=== PATIENT | female | born 1950 | race Caucasian/White ===

== ENCOUNTER → 2018-08-12 | Emergency (ER) | payer OTHER ==
[~2018-08-12] MED LIST: ACETAMINOPHEN 325 MG TABLET (FP) ONE; ACETAMINOPHEN 650 MG/20.3 ML ORAL SOLUTION (CUPS) ONE; ACETAMINOPHEN 650 MG/20.3 ML ORAL SOLUTION (CUPS) PO ONE
[2018-08-12 22:32] VITALS: BP 156/62; PULSE 82; TEMP 102; BMI 28.9
== END | disposition left against medical advice (07) ==
LOC: JER 22:27
DX: Z53.21 Procedure and treatment not carried out due to patient leaving prior to being seen by health care provider (principal)
CPT/HCPCS: 99281-25

== ENCOUNTER 2018-10-01 05:53 | Emergency (ER) | payer OTHER ==
--- NOTE | 2018-10-01 05:57 | PDOC ---
ED Treatment Course - LABORATORY CBC & Chemistry Diagram: 10/01/18 07:30 10/01/18 07:30 Medical Decision Making - Medical Decision Making 10/01/18 05:56 Patient seen by the advanced practice provider under my direct supervision. Ancillary testing reviewed as necessary. I agree with plan as outlined by the advanced practice provider. *DC/Admit/Observation/Transfer Diagnosis at time of Disposition: Uncontrolled hypertension - Discharge Dispostion Disposition: HOME - Prescriptions Prescriptions: Alprazolam [Xanax] 0.25 mg PO DAILY PRN #7 tablet MDD 1 tab PRN Reason: Anxiety Lisinopril [Prinivil] 20 mg PO DAILY #7 tablet - Referrals Referrals: Van Henson MD [Staff Physician] - - Patient Instructions Printed Discharge Instructions: DI for High Blood Pressure Additional Instructions: You presented to the ER with uncontrolled Hypertension. Your blood pressure improved with Xanax. Please follow up with your PCP as you will likely need further BP monitoring and control--Please call and make an appointment, Your work up is not complete until you do so. Continue all your other medications as prescribed. You are being discharged on Lisinopril 20mg Daily and Xanax 0.25mg to be taken as needed. Please return to the ER if you have any signs or symptoms of chest pain, shortness of breath, fever, uncontrollable pain, chills, nausea, vomiting, numbness, tingling, or weakness in any part of your body, changes in vision or slurred speech. Please return to the ER if symptoms persist, worsen, or new symptoms arise. - Post Discharge Activity
[2018-10-01 06:18] VITALS: BMI 28.8
[2018-10-01] MEDS ORDERED: METOPROLOL TARTRATE 50 MG TABLET (FP) PO ONE (07:35)
[2018-10-01] MEDS ORDERED: METOPROLOL TARTRATE 50 MG TABLET (FP) ONE (07:39)
--- NOTE | 2018-10-01 07:50 | PDOC ---
History of Present Illness - General Chief Complaint: Blood Pressure Problem Stated Complaint: HIGH BLOOD PRESSURE Time Seen by Provider: 10/01/18 05:56 History Source: Patient Exam Limitations: No Limitations - History of Present Illness Initial Comments: 10/01/18 07:40 67 y/o F with PMHx of HTN, Hypothyroidism, GERD, Anxiety, Breast Ca s/p Right mastectomy presents with Hypertensive urgency. Patient says about 4-5 days ago, she began to experience a headache described as 1/10, Dull and diffuse. She was concerned at this time bc she mentions she very rarely has headaches, and was prompted to measure her BP which was 211/107. A few hours following this, her BP returned to her baseline of 130s/80s however her headache as persisted. Today at 3:30am, she woke from sleep very anxious and measured her BP to be 224/ 101. She called her PCP at this time and was advised to visit the ED. Patient has had similar episodes in the past that were related to anxiety. She mentions previous discussions with her PCP regarding her anxiety however has declined medical tx (Zoloft) due to side effect profiles. Lastly, she mentions a recent increase in stress and anxiety due to her husbands current admission to [facility]. Denies any recent trauma, travel, sick contacts or recent medication changes. Denies any Fevers, chills, weakness, chest pain, SOB, nausea, vomiting, diarrhea , constipation, dysuria, visual changes, photophobia. PCP: Dr. Henson Cardio: Dr. Arguelles PMHx: As above PSHx: Cardiac Stent x1, Right mastectomy Allergies: Meperidine, PCN Social: 1ppd smoker since age 16, Denies EtOH or Drug use FHx: Mother and father with alcoholism, Father additionally had UT 10/01/18 07:50 Past History - Past Medical History Allergies/Adverse Reactions: Allergies Allergy/AdvReac Type Severity Reaction Status Date / Time meperidine HCl [From Demerol] Allergy Verified 10/01/18 06:18 Home Medications: Ambulatory Orders Aspirin [Hardeep Chewable Aspirin] 81 mg PO DAILY 06/13/15 Lansoprazole [Prevacid] 30 mg PO DAILY 06/13/15 Levothyroxine [Synthroid -] 75 mcg PO DAILY 06/13/15 Metoprolol Tartrate [Lopressor -] 50 mg PO BID 06/13/15 Cefuroxime Axetil [Ceftin] 500 mg PO BID #10 tablet 01/11/16 Sulfamethoxazole/Trimethoprim [Bactrim Oral Suspension -] 10 ml PO BID #140 ml 01/12/16 Cancer: Yes (right breast 10 years) Cardiac Disorders: Yes COPD: No GI Disorders: Yes (gerd) HTN: Yes Hypercholesterolemia: Yes Kidney Stones: Yes Thyroid Disease: Yes (hypothyroid) - Surgical History Cardiac Surgery: Yes (stent placed 2011) - Immunization History Immunization Up to Date: Yes - Suicide/Smoking/Psychosocial Hx Smoking History: Current every day smoker Have you smoked in the past 12 months: No Number of Cigarettes Smoked Daily: 6 If you are a former smoker, when did you quit?: doesnt want boooklet Information on smoking cessation initiated: No 'Breaking Loose' booklet given: 12/31/14 Hx Alcohol Use: No Drug/Substance Use Hx: No Substance Use Type: None Review of Systems - Review of Systems Constitutional: No: Chills, Fever, Weakness HEENTM: No: Blurred Vision, Recent change in vision Respiratory: No: Shortness of Breath, Wheezing Cardiac (ROS): No: Chest Pain, Lightheadedness, Palpitations ABD/GI: No: Constipated, Diarrhea, Nausea, Vomiting : No: Dysuria, Hematuria Neurological: Yes: Headache. No: Numbness, Tingling, Weakness Psychiatric: Yes: Anxiety (Mild) Endocrine: No: Excessive Sweating, Unexplained Weight Loss *Physical Exam - Vital Signs Last Vital Signs Temp Pulse Resp BP Pulse Ox 98.3 F 77 18 223/94 H 98 10/01/18 06:16 10/01/18 07:05 10/01/18 07:05 10/01/18 07:05 10/01/18 07:05 - Physical Exam General Appearance: Yes: Nourished, Appropriately Dressed HEENT: positive: EOMI, LIZ. negative: Pharyngeal Erythema, Tonsillar Exudate Neck: positive: Supple Respiratory/Chest: positive: Lungs Clear, Normal Breath Sounds. negative: Crackles, Rales, Wheezing Cardiovascular: positive: Regular Rhythm, Regular Rate, S1, S2. negative: Edema , JVD, Murmur Gastrointestinal/Abdominal: positive: Normal Bowel Sounds, Soft. 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 negative: Facial Droop, Numbness, Sensory Deficit, Confused ED Treatment Course - LABORATORY CBC & Chemistry Diagram: 10/01/18 07:30 10/01/18 07:30 - RADIOLOGY Radiology Studies Ordered: Category Date Time Status HEAD CT WITHOUT CONTRAST [CT] Stat CT Scan 10/01/18 07:35 Ordered Medical Decision Making - Medical Decision Making 10/01/18 07:50 67 y/o F with PMHx of HTN, Hypothyroidism, GERD, Anxiety, Breast Ca s/p Right mastectomy presents with uncontrolled HTN. Concern for Hypertensive urgency/emergency. Likely anxiety related. Without Tachycardia, No FND, No thunderclap. Will Check EKG, CBC, CMP, Mag, Phos, Cardiac profile. Head CT without contrast given Headache. Give Home dose metoprolol tartrate 100mg Now Ongoing assessment. 10/01/18 08:[address]: No evidence of a focal intracranial lesion or hemorrhage seen. Correlate clinically to determine further evaluation and follow-up EKG: NSR, LAD, No ST Segment elevation or depression, New TWI in V1, VR 60, QTc 438 BP measured 238/40 HR 64 Will give Nifedipine 30mg PO now Ongoing assessment. 10/01/18 08:52 Patient is unable to swallow pills--Will Try Lisinopril 20mg Now Trial Alprazolam 0.25mg 10/01/18 09:15 Laboratory Last Values WBC 8.5 K/mm3 (4.0-10.0) 10/01/18 07:30 RBC 4.87 M/mm3 (3.60-5.2) 10/01/18 07:30 Hgb 14.5 GM/dL (10.7-15.3) 10/01/18 07:30 Hct 43.3 % (32.4-45.2) D 10/01/18 07:30 MCV 88.9 fl (80-96) 10/01/18 07:30 MCH 29.8 pg (25.7-33.7) 10/01/18 07:30 MCHC 33.5 g/dl (32.0-36.0) 10/01/18 07:30 RDW 14.6 % (11.6-15.6) 10/01/18 07:30 Plt Count 283 K/MM3 (134-434) D 10/01/18 07:30 MPV 8.3 fl (7.5-11.1) 10/01/18 07:30 Absolute Neuts (auto) 5.3 K/mm3 (1.5-8.0) 10/01/18 07:30 Neutrophils % 62.2 % (42.8-82.8) 10/01/18 07:30 Lymphocytes % 25.0 % (8-40) 10/01/18 07:30 Monocytes % 7.9 % (3.8-10.2) 10/01/18 07:30 Eosinophils % 3.6 % (0-4.5) D 10/01/18 07:30 Basophils % 1.3 % (0-2.0) 10/01/18 07:30 Nucleated RBC % 0 % (0-0) 10/01/18 07:30 Sodium 142 mmol/L (136-145) 10/01/18 07:30 Potassium 4.0 mmol/L (3.5-5.1) 10/01/18 07:30 Chloride 111 mmol/L (98-107) H 10/01/18 07:30 Carbon Dioxide 25 mmol/L (21-32) 10/01/18 07:30 Anion Gap 5 MMOL/L (8-16) L 10/01/18 07:30 BUN 11.6 mg/dL (7-18) 10/01/18 07:30 Creatinine 0.9 mg/dL (0.55-1.3) 10/01/18 07:30 Est GFR (CKD-EPI)AfAm 77.77 10/01/18 07:30 Est GFR (CKD-EPI)NonAf 67.10 10/01/18 07:30 Random Glucose 95 mg/dL (74-106) 10/01/18 07:30 Calcium 9.0 mg/dL (8.5-10.1) 10/01/18 07:30 Phosphorus 2.4 mg/dL (2.5-4.9) L 10/01/18 07:30 Magnesium 1.9 mg/dL (1.8-2.4) 10/01/18 07:30 Total Bilirubin 0.7 mg/dL (0.2-1) 10/01/18 07:30 AST 21 U/L (15-37) 10/01/18 07:30 ALT 28 U/L (13-61) 10/01/18 07:30 Alkaline Phosphatase 90 U/L (45-117) 10/01/18 07:30 Creatine Kinase 68 U/L (26-192) 10/01/18 07:30 Troponin I < 0.02 ng/ml (0.00-0.05) 10/01/18 07:30 Total Protein 8.3 g/dl (6.4-8.2) H 10/01/18 07:30 Albumin 3.8 g/dl (3.4-5.0) 10/01/18 07:30 10/01/18 09:44 BP now 191/72. Anxiety improved. Patient remains asymptomatic during her stay. Given Head CT Negative and Labwork unremarkable, Will dc home to follow up with PCP. Patient instructed to follow up with Dr. Henson within 48 hours. Rx sent for Lisinopril, Alprazolam. Patient agreeable with plan. Strict return precautions given. *DC/Admit/Observation/Transfer Diagnosis at time of Disposition: Uncontrolled hypertension - Discharge Dispostion Disposition: HOME Decision to Admit order: No - Referrals Referrals: Van Henson MD [Staff Physician] - - Patient Instructions Printed Discharge Instructions: DI for High Blood Pressure Additional Instructions: You presented to the ER with uncontrolled Hypertension. Your blood pressure improved with Xanax. Please follow up with your PCP as you will likely need further BP monitoring and control--Please call and make an appointment, Your work up is not complete until you do so. Continue all your other medications as prescribed. You are being discharged on Lisinopril 20mg Daily and Xanax 0.25mg to be taken as needed. Please return to the ER if you have any signs or symptoms of chest pain, shortness of breath, fever, uncontrollable pain, chills, nausea, vomiting, numbness, tingling, or weakness in any part of your body, changes in vision or slurred speech. Please return to the ER if symptoms persist, worsen, or new symptoms arise. - Post Discharge Activity
[2018-10-01 08:07] LABS: BASO % 1.3 % (0-2.0); EOS % 3.6 % (0-4.5); HEMATOCRIT 43.3 % (32.4-45.2); HEMOGLOBIN 14.5 GM/dL (10.7-15.3); MCH 29.8 pg (25.7-33.7); MCHC 33.5 g/dl (32.0-36.0); MEAN CELL VOLUME 88.9 fl (80-96); MEAN PLT VOLUME 8.3 fl (7.5-11.1); MONO % 7.9 % (3.8-10.2); NEUT % 62.2 % (42.8-82.8); PLATELET COUNT 283 K/MM3 (134-434); RBC 4.87 M/mm3 (3.60-5.2); RDW 14.6 % (11.6-15.6); WHITE BLOOD COUNT 8.5 K/mm3 (4.0-10.0)
--- NOTE | 2018-10-01 08:10 | PDOC ---
Documentation entered by Yanna Norman SCRIBE, acting as scribe for Ishmael Sun MD. Ishmael Sun MD: This documentation has been prepared by the carmenibe, Yanna Norman SCRIBE, under my direction and personally reviewed by me in its entirety. I confirm that the documentation accurately reflects all work, treatment, procedures, and medical decision making performed by me. Attending Attestation - Resident Resident Name: JonnieKristin - ED Attending Attestation I have performed the following: I have examined & evaluated the patient, The case was reviewed & discussed with the resident, I agree w/resident's findings & plan, Exceptions are as noted - HPI HPI: 10/01/18 08:01 67 F with h/o HTN, GERD, hypothyroid presents to ED with elevated BP and headache. Pt states that she first noticed her BP was elevated 4 days ago. States that it was around 200 systolic. She endorses mild headache that started around the same time. Denies thunderclap. Denies fevers/chills. Denies neck stiffness. No N/V. Pt states that she takes metoprolol 100mg BID, which she has been compliant with, though she has not taken it today. She attributes her elevated BP to stress and anxiety. Denies CP/SOB. Denies leg swelling. Pt states her normal BP is usually around 140/80. Pt called her PMD Dr. Henson this morning when her BP peaked at 220 systolic, and she was instructed to come to ED. - Physicial Exam PE: 10/01/18 08:06 GENERAL: Awake, alert, and fully oriented, in no acute distress. HEAD: No signs of trauma EYES: PERRLA, EOMI, sclera anicteric, conjunctiva clear ENT: Auricles normal inspection, hearing grossly normal, nares patent, oropharynx clear without exudates. Moist mucosa NECK: Nontender, no stepoffs, Normal ROM, supple, no lymphadenopathy, JVD, or masses LUNGS: Breath sounds equal, clear to auscultation bilaterally. No wheezes, and no crackles HEART: Regular rate and rhythm, normal S1 and S2, no murmurs, rubs or gallops ABDOMEN: Soft, nontender, normoactive bowel sounds. No guarding, no rebound. No masses EXTREMITIES: Normal range of motion, no edema. No clubbing or cyanosis. No cords, erythema, or tenderness NEUROLOGICAL: Cranial nerves II through XII intact. 5/5 strength and sensation in all extremities, Normal speech, normal gait, normal cerebellar function SKIN: Warm, Dry, normal turgor, no rashes or lesions noted. - Medical Decision Making 10/01/18 08:06 67 F with uncontrolled BP. Has not taken her home dose of metoprolol today. Pt also with mild headache but no neuro deficits, low suspicion for ICH. - Labs, trop - CT head - Home dose metoprolol 100mg 10/01/18 10:01 Pt given lisinopril 20mg Also given xanax 0.25 mg as pt reporting significant stress and anxiety. BP now 190/70. Labs wnl CT unremarkable Pt is well appearing, with normal vitals. Clinically stable for DC at this time. I discussed the physical exam findings, ancillary test results and final diagnoses with the patient. I answered all of the patient's questions. The patient was satisfied with the care received and felt comfortable with the discharge plan and treatment plan. The patient agrees to follow up with the primary care physician within 24-72 hours.
[2018-10-01 08:21] LABS: ALBUMIN 3.8 g/dl (3.4-5.0); BILIRUBIN,TOTAL 0.7 mg/dL (0.2-1); BLOOD UREA NITROGEN 11.6 mg/dL (7-18); CREATININE 0.9 mg/dL (0.55-1.3); MAGNESIUM 1.9 mg/dL (1.8-2.4); PHOSPHOROUS 2.4 mg/dL (2.5-4.9); TOT PROT 8.3 g/dl (6.4-8.2)
[2018-10-01] MEDS ORDERED: NIFEdipine 10 MG CAPSULE (FP) PO ONE (08:34)
[2018-10-01] MEDS ORDERED: NIFEdipine E.R. 30 MG TABLET (FP) ONE (08:53)
[2018-10-01] MEDS: NIFEdipine E.R. 30 MG TABLET (FP) PO ONE ×2 (08:54→09:03)
[2018-10-01] MEDS ORDERED: LISINOPRIL 20 MG TABLET (FP) PO ONE (09:02)
[2018-10-01] MEDS ORDERED: LISINOPRIL 20 MG TABLET (FP) ONE (09:04)
[2018-10-01] MEDS ORDERED: ALPRAZolam 0.25 MG TABLET PO ONE ×2 (09:04→09:28)
[2018-10-01] MEDS ORDERED: ALPRAZolam 0.25 MG TABLET ONE (09:06)
[2018-10-01 10:04] VITALS: BP 191/72; PULSE 78; TEMP 98.1
--- NOTE | 2018-10-01 11:16 | EKG ---
Test Reason : Blood Pressure : / mmHG Vent. Rate : 060 BPM Atrial Rate : 060 BPM P-R Int : 192 ms QRS Dur : 078 ms QT Int : 438 ms P-R-T Axes : 043 -43 092 degrees QTc Int : 438 ms NORMAL SINUS RHYTHM LEFT AXIS DEVIATION SEPTAL INFARCT (CITED ON OR BEFORE 01-OCT-2018) ABNORMAL ECG WHEN COMPARED WITH ECG OF 13-JUN-2015 19:31, QUESTIONABLE CHANGE IN INITIAL FORCES OF SEPTAL LEADS Confirmed by LUKAS BOLTON MD ([id number]) on 10/01/2018 11:16:35 AM Referred By: Confirmed By:LUKAS BOLTON MD
== END 2018-10-01 10:12 | disposition home or self-care (01) ==
LOC: JER 05:53
DX: I10 Essential (primary) hypertension (principal); F41.9 Anxiety disorder, unspecified; E07.9 Disorder of thyroid, unspecified; Z85.3 Personal history of malignant neoplasm of breast
CPT/HCPCS: 36415; 70450-TC; 80053; 82550; 83735; 84100; 84484; 85025; 93005; 93010; 99284-25

== ENCOUNTER 2019-02-23 09:33 | Day surgery (SDC) | payer OTHER ==
[2019-02-19 15:53] VITALS: BMI 27.9
[2019-02-23 12:13] VITALS: TEMP 97.8
[2019-02-23 12:23] VITALS: PULSE 78
[2019-02-23 12:34] VITALS: BP 170/73
--- NOTE | 2019-02-26 15:39 | PATH ---
Surgical Pathology Report Patient Name: MARTINA LUCAS [facility]. Rec. #: [id number] /Age/Gender: 1950 (Age: 68) / F Account: [id number] Location: [facility] Taken: 02/23/2019 Received: 02/23/2019 Reported: 02/26/2019 Physicians: Adam Geronimo M.D. Specimen(s) Received POLYP HEPATIC FLEXURE Clinical History Change in bowel habits Postoperative diagnosis: Internal and external hemorrhoids, colon polyp Final Diagnosis HEPATIC FLEXURE, POLYP, BIOPSY: TUBULAR ADENOMA. Electronically Signed Shala Whiteside M.D. Gross Description Received in formalin, labeled "biopsy polyp hepatic flexure" is a romero, irregular portion of soft tissue measuring 0.6 cm. in greatest dimension. The specimen is submitted in toto in one cassette. 02/24/201902/24/2019
== END 2019-02-23 12:30 | disposition home or self-care (01) ==
LOC: FASU-ENDO 09:33
PROVIDERS: ATTEND Internal Medicine Gastroenterology
PROC: 0DBL8ZX Excision of Transverse Colon, Via Natural or Artificial Opening Endoscopic, Diagnostic (ICD-10-PCS; principal; 2019-02-23 11:35)
DX: D12.3 Benign neoplasm of transverse colon (principal); K64.4 Residual hemorrhoidal skin tags; K64.8 Other hemorrhoids; K62.5 Hemorrhage of anus and rectum; R19.4 Change in bowel habit

== ENCOUNTER 2022-03-17 13:10 | Inpatient (IN) | payer OTHER ==
[2022-03-17] MEDS ORDERED: LACTATED RINGERS SOLUTION 1000 ML INFUS.BAG IV ONE (14:04)
[2022-03-17] MEDS ORDERED: KETOROLAC TROMETHAMINE 15 MG/ML VIAL IVPUSH ONE (14:04)
[2022-03-17] MEDS ORDERED: KETOROLAC TROMETHAMINE 15 MG/ML VIAL ONE ×2 (14:14→18:29)
[2022-03-17 14:31] LABS: BASO % 1.2 % (0-2.0); EOS % 2.8 % (0-4.5); HEMATOCRIT 43.7 % (32.4-45.2); HEMOGLOBIN 14.2 GM/dL (10.7-15.3); MCH 28.9 pg (25.7-33.7); MCHC 32.5 g/dl (32.0-36.0); MEAN CELL VOLUME 88.9 fl (80-96); MEAN PLT VOLUME 8.5 fl (7.5-11.1); MONO % 10.6 % (3.8-10.2); NEUT % 62.4 % (42.8-82.8); PLATELET COUNT 323 10^3/uL (134-434); RBC 4.92 M/mm3 (3.60-5.2); RDW 14.4 % (11.6-15.6); WHITE BLOOD COUNT 9.7 K/mm3 (4.0-10.0)
[2022-03-17 14:34] LABS: EPI CELLS 11 /uL (0-25.1); HYALINE CASTS 0 /uL (0-3.1); URINE APPEARANCE CLEAR; URINE BACTERIA 242 /uL (0-1359); URINE BILIRUBIN NEGATIVE (NEGATIVE); URINE COLOR YELLOW; URINE GLUCOSE (UA) NEGATIVE (NEGATIVE); URINE KETONE NEGATIVE (NEGATIVE); URINE LEUK ESTERASE TRACE (NEGATIVE); URINE NITRITE NEGATIVE (NEGATIVE); URINE PROTEIN NEGATIVE (NEGATIVE); URINE RBC 12 /uL (0-23.9); URINE UROBILINOGEN 0.2 mg/dL (0.2-1.0); URINE WBC 57 /uL (0-25.8)
[2022-03-17 14:52] LABS: BLOOD UREA NITROGEN 15.1 mg/dL (7-18)
[2022-03-17 16:15] LABS: ALBUMIN 3.6 g/dl (3.4-5.0)
[2022-03-17 16:18] LABS: CREATININE 0.9 mg/dL (0.55-1.3)
[2022-03-17 16:19] LABS: BILIRUBIN,TOTAL 0.7 mg/dL (0.2-1); TOT PROT 8.1 g/dl (6.4-8.2)
[2022-03-17] MEDS ORDERED: CEFTRIAXONE 1,000 MG in DEXTROSE 5%-WATER - 50 ML IVPB ONE (16:36)
[2022-03-17] MEDS ORDERED: CEFTRIAXONE 1 GM/50 ML BAG ONE (16:39)
[2022-03-17] MEDS ORDERED: FAMOTIDINE 20 MG/50 ML IVPB 20 MG/50 ML MG IVPB ONE ×2 (16:41→16:59)
[2022-03-17] MEDS ORDERED: SODIUM CHLORIDE 1,000 ML IV SCH (18:00)
[2022-03-17] MEDS ORDERED: KETOROLAC TROMETHAMINE 15 MG/ML VIAL IVPUSH PRN (18:00)
[2022-03-17] MEDS ORDERED: TAMSULOSIN HCL 0.4 MG CAP PO ONE (18:08)
[2022-03-17] MEDS ORDERED: TAMSULOSIN HCL 0.4 MG CAP ONE (22:24)
[2022-03-17] MEDS: METOPROLOL TARTRATE 50 MG TABLET (FP) PO SCH (22:42)
[2022-03-17] MEDS ORDERED: METOPROLOL TARTRATE 50 MG TABLET (FP) ONE (22:44)
[2022-03-18] MEDS ORDERED: amLODIPine BESYLATE 5 MG TABLET (FP) PO ONE (00:41)
[2022-03-18] MEDS ORDERED: ACETAMINOPHEN 1000 MG/100 ML BAG IVPB ONE (00:43)
[2022-03-18 04:32] VITALS: BMI 29.3
[2022-03-18] MEDS: LEVOTHYROXINE NA 88 MCG TABLET (FP) PO SCH (06:48)
[2022-03-18] MEDS: CEFTRIAXONE 1 GM in DEXTROSE 5%-WATER - 50 ML IVPB SCH (10:58)
[2022-03-18] MEDS: METOPROLOL TARTRATE 50 MG TABLET (FP) PO SCH ×2 (10:58→21:24)
[2022-03-18] MEDS: LISINOPRIL 20 MG TABLET PO SCH (10:58)
[2022-03-18] MEDS: TAMSULOSIN HCL 0.4 MG CAP PO SCH ×2 (10:58→11:05)
[2022-03-18 22:57] VITALS: RESP 18
[2022-03-19] MEDS: LEVOTHYROXINE NA 88 MCG TABLET (FP) PO SCH (06:19)
[2022-03-19] MEDS: TAMSULOSIN HCL 0.4 MG CAP PO SCH ×2 (09:00→09:04)
[2022-03-19] MEDS: LISINOPRIL 20 MG TABLET PO SCH (09:04)
[2022-03-19] MEDS: METOPROLOL TARTRATE 50 MG TABLET (FP) PO SCH (09:04)
[2022-03-19 10:04] LABS: EOS % 1.9 % (0-4.5); HEMATOCRIT 38.5 % (32.4-45.2); HEMOGLOBIN 12.7 GM/dL (10.7-15.3); LYMPH % 19.2 % (8-40); MCH 28.9 pg (25.7-33.7); MCHC 32.9 g/dl (32.0-36.0); MEAN CELL VOLUME 87.8 fl (80-96); MEAN PLT VOLUME 8.4 fl (7.5-11.1); MONO % 13.1 % (3.8-10.2); NEUT % 64.8 % (42.8-82.8); PLATELET COUNT 249 10^3/uL (134-434); RBC 4.39 M/mm3 (3.60-5.2); RDW 14.5 % (11.6-15.6); WHITE BLOOD COUNT 7.7 K/mm3 (4.0-10.0)
[2022-03-19] MEDS: CEFTRIAXONE 1 GM in DEXTROSE 5%-WATER - 50 ML IVPB SCH (10:08)
[2022-03-19 10:32] LABS: CALCIUM 9.1 mg/dL (8.5-10.1)
[2022-03-19 10:33] LABS: BLOOD UREA NITROGEN 23.1 mg/dL (7-18)
[2022-03-19 10:36] LABS: CREATININE 1.2 mg/dL (0.55-1.3)
[2022-03-19 10:38] LABS: BILIRUBIN,TOTAL 0.8 mg/dL (0.2-1)
[2022-03-19 11:24] VITALS: BP 154/57; PULSE 64; TEMP 98.2
== END 2022-03-19 13:35 | disposition home or self-care (01) | DRG 690 ==
LOC: JER 13:10 → JERBED 16:33 → J5S 23:59
PROVIDERS: ADMIT Internal Medicine; ATTEND Internal Medicine
DX: N13.6 Pyonephrosis (principal); E03.9 Hypothyroidism, unspecified; I10 Essential (primary) hypertension; K21.9 Gastro-esophageal reflux disease without esophagitis; F41.9 Anxiety disorder, unspecified; B96.4 Proteus (mirabilis) (morganii) as the cause of diseases classified elsewhere; Z85.3 Personal history of malignant neoplasm of breast; N12 Tubulo-interstitial nephritis, not specified as acute or chronic
CPT/HCPCS: 36415; 74176-TC; 76775-TC; 76856-TC; 80053; 81003; 84484; 85025; 87086; 87186; 93005; 93010; 99285-25; C9803-CS; U0003; U0005

== ENCOUNTER 2022-11-28 04:20 | Day surgery (SDC) | payer OTHER ==
[2022-11-23 11:21] VITALS: BMI 28.3
[2022-11-28] MEDS ORDERED: GLYCOPYRROLATE 0.2 MG/1 ML VIAL ONE (11:43)
[2022-11-28] MEDS ORDERED: LIDOCAINE HCL/PF 2% SDV 5ML VIAL ONE (11:43)
[2022-11-28] MEDS ORDERED: MIDAZOLAM HCL 2 MG/2 ML SINGLE DOSE VIAL ONE ×2 (11:45→11:54)
[2022-11-28] MEDS ORDERED: PROPOFOL 40 ML ONE (11:46)
[2022-11-28] MEDS ORDERED: PROPOFOL 20 ML ONE (11:46)
[2022-11-28] MEDS ORDERED: SUCCINYLCHOLINE CHLORIDE 200 MG/10 ML SYRINGE ONE (11:48)
[2022-11-28] MEDS ORDERED: CLINDAMYCIN 600MG PREMIX IVPB 600 MG/50 ML BAG IVPB ONE (11:48)
[2022-11-28] MEDS ORDERED: CLINDAMYCIN 600 MG PREMIX BAG IVPB ONE (12:05)
[2022-11-28] MEDS ORDERED: DEXAMETHASONE SOD PHOSPHATE 4 MG/1 ML VIAL ONE (12:32)
[2022-11-28] MEDS ORDERED: ONDANSETRON 4 MG/2 ML VIAL ONE (12:32)
[2022-11-28] MEDS ORDERED: ONDANSETRON 4 MG/2 ML VIAL IVPUSH PRN (12:49)
[2022-11-28] MEDS ORDERED: LACTATED RINGERS SOLUTION 1,000 ML IV SCH (13:00)
[2022-11-28] MEDS ORDERED: amLODIPine BESYLATE 2.5 MG TABLET (FP) PO ONE (14:00)
[2022-11-28] MEDS ORDERED: LABETALOL HCL 5 MG/1 ML (100MG/20 ML VIAL) ONE (14:09)
[2022-11-28] MEDS ORDERED: hydrALAZINE HCL 20 MG/ML VIAL ONE (14:42)
[2022-11-28] MEDS ORDERED: LABETALOL HCL 5 MG/1 ML (100MG/20 ML VIAL) IVPUSH ONE (15:08)
[2022-11-28] MEDS ORDERED: hydrALAZINE HCL 20 MG/ML VIAL IVPUSH ONE (15:09)
[2022-11-28 16:26] VITALS: RESP 20; TEMP 97.7
[2022-11-28 16:39] VITALS: BP 162/66; PULSE 75
== END 2022-11-28 16:38 | disposition home or self-care (01) ==
LOC: JASU-SURG 04:20
PROVIDERS: ATTEND Urology
PROC: 0TC78ZZ Extirpation of Matter from Left Ureter, Via Natural or Artificial Opening Endoscopic (ICD-10-PCS; principal; 2022-11-28 12:00)
PROC: 0T778DZ Dilation of Left Ureter with Intraluminal Device, Via Natural or Artificial Opening Endoscopic (ICD-10-PCS; 2022-11-28 12:00)
DX: N13.2 Hydronephrosis with renal and ureteral calculous obstruction (principal)
CPT/HCPCS: 36415; 76000-TC-FY; 82360; 94760; C1747; C1758; C2617

== ENCOUNTER 2024-03-27 06:16 | Inpatient (IN) | payer OTHER ==
[2024-03-27] MEDS ORDERED: methylPREDNISolone NA SUCC 125 MG/2 ML VIAL ONE (07:08)
[2024-03-27] MEDS ORDERED: ALBUTEROL SO4 2.5/IPRATROPIUM 0.5 INH SOL 3 ML VIAL.NEB. NEB ONE ×4 (07:08→09:35)
[2024-03-27 08:37] LABS: VENOUS O2 SATURATION 45.5 % (70-80); VENOUS PCO2 49.4 mmHg (38-52); VENOUS PH 7.315 (7.310-7.410)
[2024-03-27] MEDS: ALBUTEROL SO4 2.5/IPRATROPIUM 0.5 INH SOL 3 ML VIAL.NEB. NEB SCH (08:38)
[2024-03-27] MEDS: methylPREDNISolone NA SUCC 125 MG/2 ML VIAL IVPB ONE (08:38)
[2024-03-27 08:42] LABS: BASO % 0.5 % (0-2.0); HEMATOCRIT 36.3 % (32.4-45.2); HEMOGLOBIN 12.3 GM/dL (10.7-15.3); LYMPH % 9.8 % (8-40); MCH 29.3 pg (25.7-33.7); MCHC 33.9 g/dl (32.0-36.0); MEAN CELL VOLUME 86.4 fl (80-96); MEAN PLT VOLUME 7.7 fl (7.5-11.1); MONO % 8.5 % (3.8-10.2); NEUT % 81.2 % (42.8-82.8); PLATELET COUNT 258 10^3/uL (134-434); RBC 4.21 M/mm3 (3.60-5.2); RDW 14.9 % (11.6-15.6); WHITE BLOOD COUNT 7.3 K/mm3 (4.0-10.0)
[2024-03-27 09:11] LABS: POTASSIUM 3.9 mmol/L (3.5-5.1)
[2024-03-27 09:13] LABS: ALBUMIN 3.5 g/dl (3.4-5.0); BLOOD UREA NITROGEN 23.9 mg/dL (7-18); CALCIUM 9.6 mg/dL (8.5-10.1); MAGNESIUM 1.7 mg/dL (1.8-2.4)
[2024-03-27 09:17] LABS: CREATININE 1.2 mg/dL (0.55-1.3)
[2024-03-27 09:18] LABS: BILIRUBIN,TOTAL 0.7 mg/dL (0.2-1); TOT PROT 7.6 g/dl (6.4-8.2)
[2024-03-27] MEDS ORDERED: CEFTRIAXONE 1 G/50 ML PREMIX 50 ML IVPB ONE (09:24)
[2024-03-27] MEDS ORDERED: AZITHROMYCIN IVPB 500 MG/250 ML BAG IVPB ONE (09:25)
[2024-03-27] MEDS ORDERED: FUROSEMIDE 40 MG/4 ML INJECTABLE VIAL ONE (09:35)
[2024-03-27 09:42] LABS: INR 1.19 (0.83-1.09); PROTHROMBIN TIME (PATIENT) 13.4 SEC (9.7-13.0)
[2024-03-27 09:45] LABS: ACTIVATED PTT 28.5 SECONDS (25.2-36.5)
[2024-03-27] MEDS: FUROSEMIDE 40 MG/4 ML INJECTABLE VIAL IVPUSH ONE (10:05)
[2024-03-27] MEDS: AZITHROMYCIN IVPB 500 MG in DEXTROSE 5%-WATER - 250 ML IVPB ONE (10:05)
[2024-03-27] MEDS ORDERED: ASPIRIN 81 MG CHEWABLE TABLETS ONE ×2 (11:05→15:05)
[2024-03-27] MEDS ORDERED: hydrALAZINE HCL 20 MG/ML VIAL IVPUSH PRN (14:12)
[2024-03-27] MEDS ORDERED: ENOXAPARIN NA (PORCINE) 40 MG/0.4 ML DISP.SYRIN SQ ONE (15:06)
[2024-03-27] MEDS ORDERED: OSELTAMIVIR PHOSPHATE 75 MG CAPSULE ONE (15:06)
[2024-03-27] MEDS: ASPIRIN 81 MG CHEWABLE TABLETS PO ONE (15:07)
[2024-03-27] MEDS: ENOXAPARIN NA (PORCINE) 40 MG/0.4 ML DISP.SYRIN SQ SCH (15:07)
[2024-03-27] MEDS: hydrALAZINE HCL 20 MG/ML VIAL IVPUSH ONE (15:07)
[2024-03-27] MEDS: OSELTAMIVIR PHOSPHATE 75 MG CAPSULE PO ONE (15:07)
[2024-03-27 17:25] VITALS: BMI 13.0
[2024-03-27] MEDS: VANCOMYCIN/WATER 1250 MG 1,250 MG/250 ML BAG IVPB SCH (20:19)
[2024-03-27] MEDS: CEFEPIME HCL/D5W 2 GM/50 ML BAG IVPB ONE (21:12)
[2024-03-27] MEDS: METOPROLOL TARTRATE 50 MG TABLET (FP) PO SCH (21:12)
[2024-03-27] MEDS: ATORVASTATIN CA 10 MG TABLET (FP) PO SCH (21:13)
[2024-03-27] MEDS ORDERED: PATIENT'S OWN MEDICATION (NON-FORMULARY) (Metoprolol Tartrate [Metoprolol Tartrate] 100 MG PO SCH (22:00)
[2024-03-28] MEDS: OSELTAMIVIR PHOSPHATE 30 MG CAPSULE PO SCH (04:39)
[2024-03-28] MEDS: LEVOTHYROXINE NA 88 MCG TABLET (FP) PO SCH (06:07)
[2024-03-28 07:04] LABS: HEMATOCRIT 37.5 % (32.4-45.2); MEAN CELL VOLUME 87.7 fl (80-96); MEAN PLT VOLUME 8.3 fl (7.5-11.1); PLATELET COUNT 274 10^3/uL (134-434); RBC 4.28 M/mm3 (3.60-5.2); RDW 14.5 % (11.6-15.6); WHITE BLOOD COUNT 12.5 K/mm3 (4.0-10.0)
[2024-03-28 07:24] LABS: POTASSIUM 4.1 mmol/L (3.5-5.1)
[2024-03-28 07:29] LABS: ALBUMIN 3.3 g/dl (3.4-5.0); CALCIUM 9.6 mg/dL (8.5-10.1)
[2024-03-28 07:30] LABS: BLOOD UREA NITROGEN 33.5 mg/dL (7-18)
[2024-03-28 07:33] LABS: CREATININE 1.2 mg/dL (0.55-1.3); PHOSPHOROUS 2.8 mg/dL (2.5-4.9)
[2024-03-28 07:34] LABS: BILIRUBIN,TOTAL 0.5 mg/dL (0.2-1); TOT PROT 7.3 g/dl (6.4-8.2)
[2024-03-28] MEDS: CEFEPIME HCL/D5W 2 GM/50 ML BAG IVPB SCH (09:44)
[2024-03-28] MEDS: ASPIRIN COATED 81 MG TABLET.EC PO SCH (09:44)
[2024-03-28] MEDS: amLODIPine BESYLATE 2.5 MG TABLET (FP) PO SCH (09:45)
[2024-03-28] MEDS: PANTOPRAZOLE 40 MG TABLET PO SCH (09:45)
[2024-03-28] MEDS ORDERED: FUROSEMIDE 40 MG/4 ML INJECTABLE VIAL IVPUSH SCH (10:00)
[2024-03-28] MEDS: DOXYCYCLINE INJECTION 100 MG in DEXTROSE 5%-WATER 100 ML IVPB SCH (10:49)
[2024-03-28] MEDS: VANCOMYCIN/WATER 1250 MG 1,250 MG/250 ML BAG IVPB SCH (11:13)
[2024-03-28] MEDS: CEFEPIME HCL 2 GM VIAL (RESTRICTED TO ID) IVPB SCH (11:13)
[2024-03-28] MEDS: guaiFENesin/D-METHORPHAN HB 10 ML UNIT-DOSE CUPS PO SCH (12:34)
[2024-03-28] MEDS: LIDOCAINE 5% TOPICAL PATCH TP SCH (12:34)
[2024-03-28] MEDS: ALBUTEROL SO4 2.5/IPRATROPIUM 0.5 INH SOL 3 ML VIAL.NEB. NEB SCH (12:54)
[2024-03-28] MEDS: DOXYCYCLINE HYCLATE 100 MG CAPSULE PO SCH (14:07)
[2024-03-28] MEDS: CEFTRIAXONE 1 G/50 ML PREMIX 50 ML IVPB SCH (21:17)
[2024-03-28] MEDS: LIDOCAINE PATCH REMOVAL MC SCH (21:17)
[2024-03-28] MEDS ORDERED: CEFEPIME HCL/D5W 1 GM/50 ML BAG IVPB SCH (22:00)
[2024-03-29] MEDS: ACETAMINOPHEN 500 MG TABLET (FP) PO PRN (06:59)
[2024-03-29] MEDS ORDERED: ACETAMINOPHEN 500 MG TABLET (FP) PO PRN (08:00)
[2024-03-29] MEDS ORDERED: hydrALAZINE HCL 20 MG/ML VIAL IVPUSH PRN (08:00)
[2024-03-29] MEDS ORDERED: ALBUTEROL SO4 2.5/IPRATROPIUM 0.5 INH SOL 3 ML VIAL.NEB. NEB ONE (08:00)
[2024-03-29] MEDS ORDERED: amLODIPine BESYLATE 2.5 MG TABLET (FP) PO SCH (10:00)
[2024-03-29] MEDS: amLODIPine BESYLATE 5 MG TABLET (FP) PO SCH (10:44)
[2024-03-29] MEDS: OSELTAMIVIR PHOSPHATE 30 MG CAPSULE PO SCH (10:44)
[2024-03-29] MEDS: PANTOPRAZOLE 40 MG TABLET PO SCH (10:44)
[2024-03-29] MEDS: ASPIRIN COATED 81 MG TABLET.EC PO SCH (10:44)
[2024-03-29] MEDS: METOPROLOL TARTRATE 50 MG TABLET (FP) PO SCH (10:44)
[2024-03-29] MEDS: ENOXAPARIN NA (PORCINE) 40 MG/0.4 ML DISP.SYRIN SQ SCH (10:45)
[2024-03-29] MEDS: FLUTICASONE PROP 0.05% 16 GM NASAL SPRAY NS SCH (10:50)
[2024-03-29] MEDS: NICOTINE 14 MG/24 HOURS TOPICAL PATCH TD SCH (10:56)
[2024-03-29] MEDS: LIDOCAINE 5% TOPICAL PATCH TP SCH (10:56)
[2024-03-29] MEDS: ALBUTEROL SO4 2.5/IPRATROPIUM 0.5 INH SOL 3 ML VIAL.NEB. NEB SCH (11:16)
[2024-03-29] MEDS: guaiFENesin/D-METHORPHAN HB 10 ML UNIT-DOSE CUPS PO SCH (13:32)
[2024-03-29] MEDS: ATORVASTATIN CA 10 MG TABLET (FP) PO SCH (21:42)
[2024-03-29] MEDS: LIDOCAINE PATCH REMOVAL MC SCH (21:44)
[2024-03-30] MEDS: LEVOTHYROXINE NA 88 MCG TABLET (FP) PO SCH (06:19)
[2024-03-30 08:51] LABS: BASO % 0.5 % (0-2.0); EOS % 0.6 % (0-4.5); HEMATOCRIT 37.7 % (32.4-45.2); HEMOGLOBIN 12.1 GM/dL (10.7-15.3); LYMPH % 16.9 % (8-40); MCH 27.8 pg (25.7-33.7); MEAN CELL VOLUME 86.8 fl (80-96); MEAN PLT VOLUME 8.2 fl (7.5-11.1); MONO % 15.7 % (3.8-10.2); NEUT % 66.3 % (42.8-82.8); PLATELET COUNT 233 10^3/uL (134-434); RBC 4.35 M/mm3 (3.60-5.2); RDW 14.7 % (11.6-15.6); WHITE BLOOD COUNT 6.3 K/mm3 (4.0-10.0)
[2024-03-30 09:14] LABS: POTASSIUM 3.9 mmol/L (3.5-5.1)
[2024-03-30 09:16] LABS: BLOOD UREA NITROGEN 25.2 mg/dL (7-18); CALCIUM 9.2 mg/dL (8.5-10.1); MAGNESIUM 1.8 mg/dL (1.8-2.4)
[2024-03-30] MEDS: amLODIPine BESYLATE 10 MG TABLET (FP) PO SCH (10:15)
[2024-03-30] MEDS: FUROSEMIDE 20 MG TABLET (FP) PO SCH (10:15)
[2024-03-30] MEDS: ALBUTEROL SO4 2.5/IPRATROPIUM 0.5 INH SOL 3 ML VIAL.NEB. NEB SCH (20:05)
[2024-03-30] MEDS: OSELTAMIVIR PHOSPHATE 75 MG CAPSULE PO SCH (21:55)
[2024-03-31] MEDS: NAPH,MB-DB/K PH,MBDB POWDER PACKET PO ONE (00:30)
[2024-03-31 07:23] VITALS: RESP 18
[2024-03-31 09:52] LABS: HEMATOCRIT 39.2 % (32.4-45.2); HEMOGLOBIN 12.8 GM/dL (10.7-15.3); MCH 28.2 pg (25.7-33.7); MCHC 32.7 g/dl (32.0-36.0); MEAN CELL VOLUME 86.3 fl (80-96); MEAN PLT VOLUME 8.3 fl (7.5-11.1); PLATELET COUNT 254 10^3/uL (134-434); RBC 4.54 M/mm3 (3.60-5.2); RDW 14.3 % (11.6-15.6); WHITE BLOOD COUNT 5.6 K/mm3 (4.0-10.0)
[2024-03-31 09:59] LABS: POTASSIUM 3.8 mmol/L (3.5-5.1)
[2024-03-31 10:00] LABS: BLOOD UREA NITROGEN 21.2 mg/dL (7-18); CALCIUM 9.3 mg/dL (8.5-10.1)
[2024-03-31 10:04] LABS: PHOSPHOROUS 1.7 mg/dL (2.5-4.9)
[2024-03-31] MEDS: FUROSEMIDE 40 MG/4 ML INJECTABLE VIAL IVPUSH ONE (16:58)
[2024-04-01 08:42] LABS: HEMATOCRIT 38.5 % (32.4-45.2); HEMOGLOBIN 12.8 GM/dL (10.7-15.3); MCH 28.5 pg (25.7-33.7); MCHC 33.4 g/dl (32.0-36.0); MEAN CELL VOLUME 85.2 fl (80-96); MEAN PLT VOLUME 8.2 fl (7.5-11.1); PLATELET COUNT 262 10^3/uL (134-434); RBC 4.51 M/mm3 (3.60-5.2); RDW 14.4 % (11.6-15.6); WHITE BLOOD COUNT 6.8 K/mm3 (4.0-10.0)
[2024-04-01 09:06] LABS: POTASSIUM 3.6 mmol/L (3.5-5.1)
[2024-04-01 09:12] LABS: BLOOD UREA NITROGEN 19.9 mg/dL (7-18)
[2024-04-01 09:15] LABS: CREATININE 0.9 mg/dL (0.55-1.3); PHOSPHOROUS 2.4 mg/dL (2.5-4.9)
[2024-04-01 10:02] VITALS: BP 149/57; PULSE 56; TEMP 97.9
== END 2024-04-01 12:06 | disposition home or self-care (01) | DRG 291 ==
LOC: JER 06:16 → JERBED 09:50 → J4S 16:20 → J7W 03-29 00:23
PROVIDERS: ADMIT Student in an Organized Health Care Education/Training Program
DX: I11.0 Hypertensive heart disease with heart failure (principal); I50.31 Acute diastolic (congestive) heart failure; J96.01 Acute respiratory failure with hypoxia; J18.9 Pneumonia, unspecified organism; J44.1 Chronic obstructive pulmonary disease with (acute) exacerbation; J10.1 Influenza due to other identified influenza virus with other respiratory manifestations; M54.50 Low back pain, unspecified; K21.9 Gastro-esophageal reflux disease without esophagitis; I16.0 Hypertensive urgency; F17.200 Nicotine dependence, unspecified, uncomplicated; E03.9 Hypothyroidism, unspecified; I25.10 Atherosclerotic heart disease of native coronary artery without angina pectoris; I10 Essential (primary) hypertension; Z95.5 Presence of coronary angioplasty implant and graft; Z85.3 Personal history of malignant neoplasm of breast; Z88.0 Allergy status to penicillin
CPT/HCPCS: 0241U-QW; 36415; 71045-TC-FY; 80048; 80053; 82803; 83735; 83880; 84100; 84484; 85025; 85027; 85379; 85610; 85730; 87040; 87070; 87077; 87081; 87205; 87899; 93005; 93010; 93306-TC; 94640; 94761; 99285-25